=== PATIENT | male | born 2000 ===

== ENCOUNTER 2018-12-07 23:40 | Emergency (ER) | payer SELFPAY ==
[2018-12-08 00:02] VITALS: BP 118/73; PULSE 91; TEMP 98.1; BMI 19.0
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
[2018-12-08] MEDS ORDERED: ACETAMINOPHEN 500 MG TABLET (FP) PO ONE (00:48)
[2018-12-08] MEDS ORDERED: ACETAMINOPHEN 325 MG TABLET (FP) ONE (01:14)
[2018-12-08] MEDS ORDERED: DIPHTH,PERTUSS(ACELL),TET 0.5 ML DISP.SYRIN IM ONE (01:14)
[2018-12-08] MEDS: DIPHTH,PERTUSS(ACELL),TET 0.5 ML DISP.SYRIN IM ONE ×2 (01:15→01:46)
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
== END 2018-12-08 02:11 | disposition home or self-care (01) ==
LOC: JER 23:40
PROC: 3E0234Z Introduction of Serum, Toxoid and Vaccine into Muscle, Percutaneous Approach (ICD-10-PCS; principal; 2018-12-07)
DX: S00.01XA Abrasion of scalp, initial encounter (principal); X58.XXXA Exposure to other specified factors, initial encounter; Y93.89 Activity, other specified; Y92.89 Other specified places as the place of occurrence of the external cause; Y99.8 Other external cause status
CPT/HCPCS: 70450-TC; 90715; 99281-25

== ENCOUNTER 2022-11-27 05:57 | Emergency (ER) | payer OTHER ==
[2022-11-27 06:19] VITALS: RESP 18; BMI 19.0
[2022-11-27] MEDS ORDERED: SODIUM CHLORIDE 0.9% 500 ML INFUS.BAG IV ONE (06:22)
[2022-11-27] MEDS ORDERED: FAMOTIDINE 20 MG/50 ML IVPB 20 MG/50 ML MG IVPB ONE (06:22)
[2022-11-27] MEDS ORDERED: FAMOTIDINE 10 MG/ML VIAL IVPB ONE (06:27)
[2022-11-27] MEDS ORDERED: ONDANSETRON 4 MG/2 ML VIAL IVPUSH ONE ×2 (07:24→10:25)
[2022-11-27] MEDS ORDERED: ONDANSETRON 4 MG/2 ML VIAL ONE ×2 (07:47→10:36)
[2022-11-27 08:34] LABS: ALBUMIN 4.6 g/dl (3.4-5.0); CALCIUM 10.3 mg/dL (8.5-10.1)
[2022-11-27 08:35] LABS: BLOOD UREA NITROGEN 14.4 mg/dL (7-18)
[2022-11-27 08:38] LABS: CREATININE 1.3 mg/dL (0.55-1.3)
[2022-11-27 08:39] LABS: BILIRUBIN,TOTAL 1.3 mg/dL (0.2-1); TOT PROT 8.6 g/dl (6.4-8.2)
[2022-11-27 08:58] LABS: HEMATOCRIT 52.4 % (35.4-49); MCH 31.4 pg (25.7-33.7); MCHC 34.4 g/dl (32.0-35.9); MEAN CELL VOLUME 91.1 fl (80-96); MEAN PLT VOLUME 9.6 fl (7.5-11.1); PLATELET COUNT 227 10^3/uL (134-434); RBC 5.75 M/mm3 (4.00-5.60); RDW 14.4 % (11.9-15.9); WHITE BLOOD COUNT 6.4 K/mm3 (4.0-10.0)
[2022-11-27 10:44] VITALS: BP 131/81; PULSE 88; TEMP 99.1
== END 2022-11-27 11:05 | disposition home or self-care (01) ==
LOC: JER 05:57
PROC: 3E033GC Introduction of Other Therapeutic Substance into Peripheral Vein, Percutaneous Approach (ICD-10-PCS; principal; 2022-11-27)
PROC: 3E033GC Introduction of Other Therapeutic Substance into Peripheral Vein, Percutaneous Approach (ICD-10-PCS; 2022-11-27)
DX: R11.10 Vomiting, unspecified (principal); R10.11 Right upper quadrant pain; R19.7 Diarrhea, unspecified
CPT/HCPCS: 36415; 76705-TC; 80053; 83690; 85025; 99284-25